=== PATIENT | male | born 1945 | race Caucasian/White ===

== ENCOUNTER 2016-10-14 05:25 | Day surgery (SDC) | payer OTHER ==
[~2016-10-14] VITALS: Ht 175.3 cm; Wt 121.1 kg
[~2016-10-14 05:25] MED LIST: ASPIR 8181 MG PO; BASLE60 GM TOP; COSOPT EYE DROPS5 ML OPHTHALMIC; FEXOFENADINE H180 MG PO; FISH OIL 1,001000 M2 PO; FLONASE 0.05%50 MCG NASAL; FLUOCINOLO0.01 %/15 TOP; IPRATROPIUM BRO15 ML NASAL; LEVOTHYROXINE 0.1 MG PO; SPIRIVA INH; SYMBICORT160 MCG/4. INH; VITAMIN D31000 UNI2 PO; XALATAN2.5 ML OPHTHALMIC
[2016-10-14 07:00] VITALS: BP 139/83
== END 2016-10-14 08:55 | disposition home or self-care (01) ==
LOC: OR 05:25 → TBA 05:25 → OR 08:55
DX: H02.834 Dermatochalasis of left upper eyelid (principal); H02.831 Dermatochalasis of right upper eyelid; H54.7 Unspecified visual loss; Z87.891 Personal history of nicotine dependence; E03.9 Hypothyroidism, unspecified; J44.9 Chronic obstructive pulmonary disease, unspecified; I71.4 Abdominal aortic aneurysm, without rupture
CPT/HCPCS: 50010; 50101; 50386; 50398; 51606; 51636; 56531; 62110; 62900; 64037; 70005